=== PATIENT | male | born 1955 ===

== ENCOUNTER → 2018-03-23 21:33 | Outpatient (REF) | payer OTHER, SELFPAY ==
[2018-03-23 22:46] LABS: Add Manual Diff / Slide Review NO; Basophils Percent Auto 0.8 % (0-2); Eosinophils Percent Auto 1.8 % (2-4); Hematocrit 47.5 % (41-53); Hemoglobin 15.9 g/dL (13.5-17.5); Lymphocytes Percent Auto 12.9 % (25-40); Mean Corpuscular HGB Conc 33.5 % (30-36); Mean Corpuscular Hemoglobin 26.5 PG (26-34); Monocytes Percent Auto 5.4 % (3-14); Neutrophils Absolute Auto 7100 /uL (3000-5900); Neutrophils Percent Auto 79.1 % (50-75); Platelet Count 316 X10^3/uL (150-400); Red Blood Cell Count 6.01 X10^6/uL (4.5-5.9)
[2018-03-24 01:19] LABS: Hemoglobin A1C% w Est Avg Glu 6.2 % (4.0-6.0)
[2018-03-24 02:10] LABS: Thyroid Stimulating Hormone 1.01 uIU/mL (0.47-4.68)
[2018-03-24 02:16] LABS: Alanine Aminotransferase 42 IU/L (21-72); Albumin Globulin Ratio 1.7 (1.0-2.8); Alkaline Phosphatase 60 U/L (38-126); Aspartate Aminotransferase 34 IU/L (17-59); Bilirubin Total 0.4 mg/dL (0.2-1.3); Blood Urea Nitrogen 16 mg/dL (9-20); Carbon Dioxide 26 mmol/L (22-32); Chloride 102 mmol/L (98-107); Cholesterol 185 mg/dL (140-199); Estimated Glomerular Filt Rate > 60.0 mL/min (>60); Globulin 2.9 g/dL (1.7-4.1); Glucose 118 mg/dL (80-110); HDL Cholesterol 50 mg/dL (40-60); HEMOLYSIS 18 (0-50); LDL Cholesterol Calculated 116 mg/dL (<100); Potassium 4.8 mmol/L (3.4-5.1); Sodium 143 mmol/L (137-145); Total Protein 7.9 g/dL (6.3-8.2); Triglycerides 93 mg/dL (35-150)
== END ==
LOC: LAB 21:33
PROVIDERS: Visit Provider Family Medicine
DX: R73.03 Prediabetes (principal); N40.2 Nodular prostate without lower urinary tract symptoms; I10 Essential (primary) hypertension
CPT/HCPCS: 36415; 80053; 80061; 83036; 84153; 84443; 85025